=== PATIENT | female | born 1960 | race African-American/Black ===

== ENCOUNTER 2019-04-08 19:11 | Inpatient (IN) | payer MEDICAID, OTHER ==
[2019-04-08] MEDS: ACETAMINOPHEN 325 MG TAB PO (19:47)
[2019-04-08 19:49] LABS: ADD MAN DIFF? NO
[2019-04-08 19:54] LABS: BASOPHILS % 0.2 % (0.0-2.0); EOSINOPHILS % 0.1 % (0.0-7.0); HEMATOCRIT 34.4 % (37.0-47.0); HEMOGLOBIN 10.5 g/dl (12.0-16.0); LYMPHOCYTES # 0.9 10^3/ul (0.8-2.9); LYMPHOCYTES % 4.8 % (15.0-51.0); MEAN CORPUSCULAR HEMOGLOBIN 26.7 pg (29.0-33.0); MEAN CORPUSCULAR HGB CONC 30.5 g/dl (32.0-37.0); MEAN CORPUSCULAR VOLUME 87.5 fl (82.0-101.0); MEAN PLATELET VOLUME 10.6 fl (7.4-10.4); MONOCYTE # 0.9 10^3/ul (0.3-0.9); MONOCYTES % 4.7 % (0.0-11.0); NEUTROPHIL # 17.2 10^3/ul (1.6-7.5); NEUTROPHILS % 89.7 % (39.0-77.0); PLATELET COUNT 297 10^3/UL (140-415); RED BLOOD COUNT 3.93 10^6/ul (4.20-5.40); RED CELL DISTRIBUTION WIDTH 17.3 % (11.5-14.5)
[2019-04-08 19:54] LABS: WHITE BLOOD COUNT 19.1 10^3/ul (4.8-10.8)
[2019-04-08] MEDS: CEFEPIME 2GM/50 ML (PMX) 50 ML IVPB (19:57)
[2019-04-08] MEDS: LACTATED RINGER S IV (20:00)
[2019-04-08 20:12] LABS: INR 2.06; PROTIME 23.3 Sec (11.9-14.9); PT RATIO 1.8
[2019-04-08 20:13] LABS: PARTIAL THROMBOPLASTIN TIME 51.3 Sec (23.0-35.0)
[2019-04-08 20:14] LABS: ALANINE AMINOTRANSFERASE 25 IU/L (13-69); ALBUMIN/GLOBULIN RATIO 0.95; ALKALINE PHOSPHATASE 89 IU/L (42-121); ANION GAP 9 (5-13); ASPARTATE AMINO TRANSFERASE 26 IU/L (15-46); BILIRUBIN,INDIRECT 0.4 mg/dl (0-1.1); BILIRUBIN,TOTAL 0.4 mg/dl (0.2-1.3); BLOOD UREA NITROGEN 19 mg/dl (7-20); CALCIUM 8.9 mg/dl (8.4-10.2); CARBON DIOXIDE 31 mmol/L (21-31); CHLORIDE 102 mmol/L (97-110); CREATININE 0.92 mg/dl (0.44-1.00); Estimated GFR > 60 mL/min (>60); GLUCOSE 142 mg/dl (70-220); POTASSIUM 3.7 mmol/L (3.5-5.1); SODIUM 142 mmol/L (135-144); TOTAL PROTEIN 8.2 g/dl (6.1-8.1)
[2019-04-08 20:24] LABS: TROPONIN-I < 0.012 ng/ml (0.000-0.120)
[2019-04-08 20:43] LABS: ADD UMIC YES; UR ASCORBIC ACID NEGATIVE (NEGATIVE); UR BACTERIA FEW /HPF (NONE SEEN); UR BILIRUBIN (Dip) NEGATIVE (NEGATIVE); UR BLOOD (Dip) NEGATIVE (NEGATIVE); UR CLARITY SLIGHTLY CLOUDY (CLEAR); UR COLOR AMBER (YELLOW); UR GLUCOSE (Dip) NEGATIVE (NEGATIVE); UR KETONES (Dip) TRACE mg/dL (NEGATIVE); UR LEUKOCYTE ESTERASE (Dip) NEGATIVE Leu/ul (NEGATIVE); UR MUCUS MANY /HPF (NONE SEEN); UR NITRITE (Dip) NEGATIVE (NEGATIVE); UR RBC 2 /HPF (0-5); UR SPECIFIC GRAVITY (Dip) 1.028 (1.003-1.030); UR SQUAMOUS EPITHELIAL CELL FEW /HPF (FEW); UR TOTAL PROTEIN (Dip) 1+ mg/dl (NEGATIVE); UR UROBILINOGEN (Dip) 1+ mg/dL (NEGATIVE); UR WBC 2 /HPF (0-5)
[2019-04-08] MEDS: VANCOMYCIN 1 GM (PMX) 250 ML IVPB (20:48)
[2019-04-08 22:15] LABS: LACTIC ACID 2.6 mmol/L (0.5-2.0)
[2019-04-08] MEDS ORDERED: VANCOMYCIN IV PER PHARMACY XX (22:30)
[2019-04-08] MEDS ORDERED: ENOXAPARIN 40 MG/0.4 ML SYG SC (22:30)
[2019-04-08] MEDS ORDERED: BISACODYL (EC) 5 MG TAB PO (22:30)
[2019-04-08] MEDS ORDERED: NITROGLYCERIN (SL) 0.4 MG TAB SL (22:30)
[2019-04-08] MEDS ORDERED: ACETAMINOPHEN 325 MG TAB PO ×2 (22:30)
[2019-04-08] MEDS ORDERED: NACL 0.9% 3 ML SYG IV (22:30)
[2019-04-08] MEDS ORDERED: DOCUSATE SODIUM 100 MG CAP PO (22:30)
[2019-04-08] MEDS ORDERED: ONDANSETRON 4 MG INJ IV ×2 (22:30)
[2019-04-09] MEDS ORDERED: PIPER-TAZO 3.375 GM IV (PMX) 100 ML IVPB
[2019-04-09 00:06] LABS: LACTIC ACID 2.1 mmol/L (0.5-2.0)
[2019-04-09] MEDS: VANCOMYCIN 1.25 GM/NS 250 ML 250 ML IVPB ×2 (05:26→16:51)
[2019-04-09 05:49] LABS: ADD MAN DIFF? NO
[2019-04-09 05:57] LABS: WHITE BLOOD COUNT 18.3 10^3/ul (4.8-10.8)
[2019-04-09 05:57] LABS: BASOPHILS % 0.2 % (0.0-2.0); HEMATOCRIT 30.9 % (37.0-47.0); HEMOGLOBIN 9.5 g/dl (12.0-16.0); LYMPHOCYTES # 1.1 10^3/ul (0.8-2.9); LYMPHOCYTES % 5.7 % (15.0-51.0); MEAN CORPUSCULAR HEMOGLOBIN 26.7 pg (29.0-33.0); MEAN CORPUSCULAR HGB CONC 30.7 g/dl (32.0-37.0); MEAN CORPUSCULAR VOLUME 86.8 fl (82.0-101.0); MEAN PLATELET VOLUME 10.6 fl (7.4-10.4); MONOCYTE # 0.9 10^3/ul (0.3-0.9); MONOCYTES % 5.1 % (0.0-11.0); NEUTROPHIL # 16.2 10^3/ul (1.6-7.5); NEUTROPHILS % 88.6 % (39.0-77.0); PLATELET COUNT 261 10^3/UL (140-415); RED BLOOD COUNT 3.56 10^6/ul (4.20-5.40); RED CELL DISTRIBUTION WIDTH 17.1 % (11.5-14.5)
[2019-04-09 06:18] LABS: PARTIAL THROMBOPLASTIN TIME 56.9 Sec (23.0-35.0)
[2019-04-09 06:53] LABS: ALANINE AMINOTRANSFERASE 24 IU/L (13-69); ALBUMIN 3.4 g/dl (3.3-4.9); ALBUMIN/GLOBULIN RATIO 0.97; ALKALINE PHOSPHATASE 81 IU/L (42-121); ANION GAP 7 (5-13); ASPARTATE AMINO TRANSFERASE 22 IU/L (15-46); BILIRUBIN,INDIRECT 0.5 mg/dl (0-1.1); BILIRUBIN,TOTAL 0.5 mg/dl (0.2-1.3); BLOOD UREA NITROGEN 13 mg/dl (7-20); CALCIUM 8.5 mg/dl (8.4-10.2); CARBON DIOXIDE 31 mmol/L (21-31); CHLORIDE 104 mmol/L (97-110); CHOL/HDL RATIO 3.9 RATIO; CHOLESTEROL 168 mg/dl (100-200); CREATININE 0.69 mg/dl (0.44-1.00); Estimated GFR > 60 mL/min (>60); GLUCOSE 122 mg/dl (70-220); HDL CHOLESTEROL 43 mg/dl (35-98); LDL CHOLESTEROL,CALCULATED 113 mg/dl; MAGNESIUM 2.1 mg/dl (1.7-2.5); POTASSIUM 3.9 mmol/L (3.5-5.1); SODIUM 142 mmol/L (135-144); TOTAL PROTEIN 6.9 g/dl (6.1-8.1); TRIGLYCERIDES 62 mg/dl (0-149)
[2019-04-09 07:04] LABS: INR 2.22; PROTIME 24.7 Sec (11.9-14.9); PT RATIO 1.9
[2019-04-09 07:08] LABS: HEMOGLOBIN A1C 6.1 % (0-5.9)
[2019-04-09] MEDS: CEFEPIME 2GM/50 ML (PMX) 50 ML IVPB ×2 (09:52→20:57)
[2019-04-09 15:21] LABS: LACTIC ACID 1.1 mmol/L (0.5-2.0)
[2019-04-09 15:55] LABS: CREATINE KINASE 85 IU/L (23-200)
[2019-04-09 16:08] LABS: CK-MB 0.89 ng/ml (0.0-2.4); TROPONIN-I < 0.012 ng/ml (0.000-0.120)
[2019-04-09] MEDS: WARFARIN 3 MG TAB PO (16:51)
[2019-04-09 19:48] LABS: CREATINE KINASE 87 IU/L (23-200)
[2019-04-09 20:00] LABS: CK INDEX 1.2; CK-MB 1.07 ng/ml (0.0-2.4); TROPONIN-I 0.012 ng/ml (0.000-0.120)
[2019-04-09] MEDS: NYSTATIN 30 GM POWDER BTL TOP (20:59)
[2019-04-10] MEDS ORDERED: VANCOMYCIN 1.25 GM/NS 250 ML 250 ML IVPB (04:00)
[2019-04-10] MEDS: VANCOMYCIN 1.25 GM/NS 250 ML 250 ML IVPB (05:05)
[2019-04-10 06:21] LABS: INR 1.88; PROTIME 21.7 Sec (11.9-14.9); PT RATIO 1.7
[2019-04-10 06:22] LABS: PARTIAL THROMBOPLASTIN TIME 52.4 Sec (23.0-35.0)
[2019-04-10] MEDS: CEFEPIME 2GM/50 ML (PMX) 50 ML IVPB ×2 (09:24→20:22)
[2019-04-10] MEDS: NYSTATIN 15 GM POWDER BTL TOP ×2 (10:28→20:24)
[2019-04-10] MEDS: DOCUSATE SODIUM 100 MG CAP PO ×2 (10:30→20:23)
[2019-04-10 10:40] LABS: PHOSPHORUS 3.9 mg/dl (2.5-4.9)
[2019-04-10 10:40] LABS: MAGNESIUM 2.2 mg/dl (1.7-2.5)
[2019-04-10 17:02] LABS: VANCOMYCIN,TROUGH 8.8 ug/ml (10.0-20.0)
[2019-04-10] MEDS: WARFARIN 2 MG TAB PO (17:27)
[2019-04-10] MEDS: VANCOMYCIN 1.5 GM/NS 250 ML 250 ML IVPB (17:27)
[2019-04-10] MEDS: HYDROCODONE/APAP (5/325) TAB PO (20:22)
[2019-04-11] MEDS: VANCOMYCIN 1.5 GM/NS 250 ML 250 ML IVPB ×2 (05:34→17:51)
[2019-04-11 06:16] LABS: ADD MAN DIFF? NO
[2019-04-11 06:29] LABS: WHITE BLOOD COUNT 9.5 10^3/ul (4.8-10.8)
[2019-04-11 06:29] LABS: BASOPHILS % 0.3 % (0.0-2.0); EOSINOPHILS % 0.3 % (0.0-7.0); HEMATOCRIT 30.9 % (37.0-47.0); HEMOGLOBIN 9.3 g/dl (12.0-16.0); LYMPHOCYTES # 1.1 10^3/ul (0.8-2.9); LYMPHOCYTES % 11.8 % (15.0-51.0); MEAN CORPUSCULAR HEMOGLOBIN 26.2 pg (29.0-33.0); MEAN CORPUSCULAR HGB CONC 30.1 g/dl (32.0-37.0); MEAN PLATELET VOLUME 11.3 fl (7.4-10.4); MONOCYTE # 0.7 10^3/ul (0.3-0.9); MONOCYTES % 6.8 % (0.0-11.0); NEUTROPHIL # 7.6 10^3/ul (1.6-7.5); NEUTROPHILS % 79.7 % (39.0-77.0); PLATELET COUNT 224 10^3/UL (140-415); RED BLOOD COUNT 3.55 10^6/ul (4.20-5.40); RED CELL DISTRIBUTION WIDTH 17.1 % (11.5-14.5)
[2019-04-11 06:45] LABS: INR 1.65; PROTIME 19.6 Sec (11.9-14.9); PT RATIO 1.5
[2019-04-11 06:46] LABS: PARTIAL THROMBOPLASTIN TIME 44.3 Sec (23.0-35.0)
[2019-04-11 06:48] LABS: ANION GAP 6 (5-13); BLOOD UREA NITROGEN 12 mg/dl (7-20); CALCIUM 8.5 mg/dl (8.4-10.2); CARBON DIOXIDE 32 mmol/L (21-31); CHLORIDE 103 mmol/L (97-110); CREATININE 0.73 mg/dl (0.44-1.00); Estimated GFR > 60 mL/min (>60); GLUCOSE 115 mg/dl (70-220); POTASSIUM 3.7 mmol/L (3.5-5.1); SODIUM 141 mmol/L (135-144)
[2019-04-11 07:28] LABS: POSITIVE DIFF @See below
[2019-04-11] MEDS: DOCUSATE SODIUM 100 MG CAP PO ×2 (09:00→22:09)
[2019-04-11] MEDS: NYSTATIN 15 GM POWDER BTL TOP ×2 (09:43→22:09)
[2019-04-11] MEDS: CEFEPIME 2GM/50 ML (PMX) 50 ML IVPB ×2 (09:43→22:08)
[2019-04-11] MEDS: WARFARIN 3 MG TAB PO (17:47)
[2019-04-11] MEDS: SOD CHLORIDE 0.9% 500 ML IV (22:10)
[2019-04-12 03:57] LABS: ADD MAN DIFF? NO
[2019-04-12 04:04] LABS: WHITE BLOOD COUNT 8.3 10^3/ul (4.8-10.8)
[2019-04-12 04:04] LABS: BASOPHILS % 0.4 % (0.0-2.0); EOSINOPHILS # 0.1 10^3/ul (0.0-0.5); EOSINOPHILS % 1.7 % (0.0-7.0); HEMATOCRIT 30.9 % (37.0-47.0); HEMOGLOBIN 9.5 g/dl (12.0-16.0); LYMPHOCYTES # 1.2 10^3/ul (0.8-2.9); LYMPHOCYTES % 13.8 % (15.0-51.0); MEAN CORPUSCULAR HEMOGLOBIN 26.8 pg (29.0-33.0); MEAN CORPUSCULAR HGB CONC 30.7 g/dl (32.0-37.0); MEAN CORPUSCULAR VOLUME 87.3 fl (82.0-101.0); MEAN PLATELET VOLUME 11.1 fl (7.4-10.4); MONOCYTE # 0.6 10^3/ul (0.3-0.9); MONOCYTES % 7.7 % (0.0-11.0); NEUTROPHIL # 6.2 10^3/ul (1.6-7.5); PLATELET COUNT 231 10^3/UL (140-415); RED BLOOD COUNT 3.54 10^6/ul (4.20-5.40); RED CELL DISTRIBUTION WIDTH 16.9 % (11.5-14.5)
[2019-04-12 04:27] LABS: ANION GAP 6 (5-13); BLOOD UREA NITROGEN 13 mg/dl (7-20); CALCIUM 8.5 mg/dl (8.4-10.2); CARBON DIOXIDE 33 mmol/L (21-31); CHLORIDE 102 mmol/L (97-110); Estimated GFR > 60 mL/min (>60); GLUCOSE 115 mg/dl (70-220); POTASSIUM 4.6 mmol/L (3.5-5.1); SODIUM 141 mmol/L (135-144)
[2019-04-12 04:46] LABS: INR 1.42; PROTIME 17.5 Sec (11.9-14.9); PT RATIO 1.4
[2019-04-12 04:49] LABS: PARTIAL THROMBOPLASTIN TIME 39.6 Sec (23.0-35.0)
[2019-04-12] MEDS: VANCOMYCIN 1.5 GM/NS 250 ML 250 ML IVPB (05:56)
[2019-04-12] MEDS: NYSTATIN 15 GM POWDER BTL TOP (08:23)
[2019-04-12] MEDS: CEFEPIME 2GM/50 ML (PMX) 50 ML IVPB (08:23)
[2019-04-12] MEDS: DOCUSATE SODIUM 100 MG CAP PO ×2 (08:23→08:24)
[2019-04-12] MEDS ORDERED: VANCOMYCIN 1.5 GM/NS 250 ML 250 ML IVPB (13:00)
[2019-04-12] MEDS ORDERED: WARFARIN 1 MG TAB PO (17:00)
== END 2019-04-12 10:00 | disposition home health service (06) | DRG 871 ==
LOC: E/R 19:11 → 6WM 22:13
PROVIDERS: Family Medicine
DX: A41.9 Sepsis, unspecified organism (principal); J18.9 Pneumonia, unspecified organism; E66.2 Morbid (severe) obesity with alveolar hypoventilation; Z68.45 Body mass index [BMI] 70 or greater, adult; R65.20 Severe sepsis without septic shock; Z71.3 Dietary counseling and surveillance; I48.0 Paroxysmal atrial fibrillation; D64.9 Anemia, unspecified; R73.03 Prediabetes; G47.33 Obstructive sleep apnea (adult) (pediatric)
CPT/HCPCS: 36415; 71045; 80048; 80053; 80061; 80202; 81001; 82550; 82553; 83036; 83605; 83735; 84100; 84443; 84484; 85025; 85610; 85730; 87040-91; 87086; 93005; 93306; 93970; 94660; 96374; 96375; 97110; 97116; 97161; 99285-25